=== PATIENT | male | born 1960 | race Caucasian/White ===

== ENCOUNTER 2024-09-07 12:41 | Outpatient (REF) | payer MEDICARE, MEDICAID, SELFPAY ==
[2024-09-07 20:02] LABS: Abs Immature Grans 0.06 10^3/uL (0.0-0.06); Absolute Basophil Count 0.15 10^3/uL (0.0-0.2); Absolute Eosinophil Count 0.15 10^3/uL (0.0-0.7); Absolute Lymphocyte Count 1.54 10^3/uL (1.2-3.4); Absolute Monocyte Count 1.04 10^3/uL (0.1-0.8); Absolute Neutrophil Count 7.81 10^3/uL (1.2-6.7); Basophils % 1.4 %; Eosinophils % 1.4 %; HCT 44.8 % (40.0-50.0); HGB 15.3 g/dL (13.5-17.5); Immature Grans % 0.6 %; Lymphocytes % 14.3 %; MCH 32.7 pg (27.0-33.0); MCHC 34.2 % (32.0-36.0); MCV 96 fL (80-95); Monocytes % 9.7 %; Neutrophils % 72.6 %; Platelet Count 366 10^3/uL (130-400); RBC 4.68 10^6/uL (4.36-5.78); RDW 12.7 % (11.8-14.1); RDW-SD 45.3 fL; WBC 10.75 10^3/uL (4.4-10.8)
[2024-09-07 20:12] LABS: ALT 31 U/L (16-63); AST 26 U/L (15-37); Alkaline Phosphatase 56 U/L (46-116); BUN 21 mg/dL (7-18); Bilirubin, Total 0.47 mg/dL (0.2-1.0); CREATININE 1.1 mg/dL (0.70-1.30); Calcium 9.2 mg/dL (8.5-10.1); Chloride 107 mmol/L (98-107); Estimated GFR 74.04 (mL/min/1.73m2); Glucose 89 mg/dL (74-106); Potassium 4.5 mmol/L (3.5-5.1); Sodium 142 mmol/L (136-145); Total Protein 7.3 g/dL (6.4-8.2)
== END 2024-09-07 12:42 | disposition home or self-care (01) ==
LOC: NCHCN 12:41
PROVIDERS: PCP Internal Medicine; Visit Provider Physician Assistant
DX: M19.09 Primary osteoarthritis, other specified site (principal)
CPT/HCPCS: 80053; 85025

== ENCOUNTER 2024-12-20 13:51 | Outpatient (REF) | payer MEDICARE, MEDICAID, SELFPAY ==
[2024-12-20 19:03] LABS: Anion Gap 6.4 mmol/L (3-11); BUN 16 mg/dL (7-18); CO2 29.6 mmol/L (21.0-32.0); CREATININE 0.9 mg/dL (0.70-1.30); Calcium 9.3 mg/dL (8.5-10.1); Chloride 103 mmol/L (98-107); Creatine Kinase 210 U/L (39-308); Estimated GFR 94.19 (mL/min/1.73m2); Glucose 87 mg/dL (74-106); Magnesium 2.1 mg/dL (1.8-2.4); Potassium 4.9 mmol/L (3.5-5.1); Sodium 139 mmol/L (136-145)
== END 2024-12-20 13:52 | disposition home or self-care (01) ==
LOC: NCHCN 13:51
PROVIDERS: PCP Internal Medicine; Visit Provider Physician Assistant
DX: R25.2 Cramp and spasm (principal)
CPT/HCPCS: 80048; 82550; 83735

== ENCOUNTER → 2025-05-16 09:29 | Outpatient (BNVA) | payer MEDICARE, MEDICAID, SELFPAY | PROVIDERS: PCP Internal Medicine; Referring Provider Internal Medicine; Visit Provider Internal Medicine Pulmonary Disease | DX: J44.9 Chronic obstructive pulmonary disease, unspecified (principal); R05.3 Chronic cough; J31.0 Chronic rhinitis; Z87.891 Personal history of nicotine dependence | CPT/HCPCS: 99205; 94618; G0296 ==